=== PATIENT | male | born 1970 | race Two or more races ===

== ENCOUNTER 2018-04-02 09:31 | Emergency (ER) | payer SELFPAY ==
[2018-04-02] MEDS ORDERED: TETANUS & DIPHTHERIA TOX,ADULT 0.5 ML VIAL ONE (10:21)
[2018-04-02] MEDS ORDERED: LIDOCAINE 1% 20 ML MDV ONE (10:21)
--- NOTE | 2018-04-02 10:39 | EDPHYS ---
Physician Documentation [facility] Name: Mercedes Robertson Age: 47 yrs Sex: Male : 1970 Arrival Date: 04/02/2018 Time: 09:34 Bed 9 Private MD: None, None ED Physician Jeff iLno HPI: 04/02 10:18 This 47 yrs old Male presents to ER via Ambulatory with complaints of Laceration To Arm.kb 10:18 The patient has a laceration related to: doing carpentry, from a power saw, occurred at [employer] work, and there are no complicating factors. The injury was accidental. The laceration(s) is(are) located on the left wrist. Onset: The symptoms/episode began/occurred just prior to arrival. Associated signs and symptoms: The patient has no apparent associated signs or symptoms. The patient has not experienced similar symptoms in the past. The patient has not recently seen a physician. Pt states he was sawing wood and accidentally cut his left wrist. Historical: - Allergies: 10:06 NKA; iw - Home Meds: 10:06 None [Active]; iw - PMHx: 10:06 None; iw - PSHx: 10:06 None; iw - Immunization history:: Last tetanus immunization: unknown. - Social history:: Smoking status: Patient/guardian denies using tobacco. ROS: 10:16 Constitutional: Negative for fever, chills, and weight loss, Cardiovascular: Negative kb for chest pain, palpitations, and edema, Respiratory: Negative for shortness of breath, cough, wheezing, and pleuritic chest pain, Abdomen/GI: Negative for abdominal pain, nausea, vomiting, diarrhea, and constipation, Back: Negative for injury and pain, : Negative for injury, bleeding, discharge, and swelling, MS/Extremity: Negative for injury and deformity, Neuro: Negative for headache, weakness, numbness, tingling, and seizure. 10:16 Skin: Positive for laceration(s), of the left wrist. Exam: 10:16 Constitutional: This is a well developed, well nourished patient who is awake, alert, kb and in no acute distress. Head/Face: Normocephalic, atraumatic. Chest/axilla: Normal chest wall appearance and motion. Nontender with no deformity. No lesions are appreciated. Cardiovascular: Regular rate and rhythm with a normal S1 and S2. No gallops, murmurs, or rubs. Normal PMI, no JVD. No pulse deficits. Respiratory: Lungs have equal breath sounds bilaterally, clear to auscultation and percussion. No rales, rhonchi or wheezes noted. No increased work of breathing, no retractions or nasal flaring. Abdomen/GI: Soft, non-tender, with normal bowel sounds. No distension or tympany. No guarding or rebound. No evidence of tenderness throughout. MS/ Extremity: Pulses equal, no cyanosis. Neurovascular intact. Full, normal range of motion. Neuro: Awake and alert, GCS 15, oriented to person, place, time, and situation. Cranial nerves II-XII grossly intact. Motor strength 5/5 in all extremities. Sensory grossly intact. Cerebellar exam normal. Normal gait. 10:16 Skin: injury, laceration(s), the wound is approximately 5 cm(s), of the left wrist, that can be described as clean, no foreign body, jagged, without bleeding. Vital Signs: 10:06 BP 134 / 74; Pulse 84; Resp 16; Temp 98.2; Pulse Ox 100% on R/A; Weight 70.31 kg; iw Height 5 ft. 1 in. (154.94 cm); Pain 8/10; 10:06 Body Mass Index 29.29 (70.31 kg, 154.94 cm) iw Laceration: 10:39 Wound Repair of 5cm ( 2.0in ) subcutaneous laceration to left wrist. Irregularly kb shaped.. Skin/tissue flap noted.. wound jagged due to saw teeth. Distal neuro/vascular/tendon intact. Anesthesia: Wound infiltrated with 6 mls of 1% lidocaine. Wound prep: Extensive cleansing with betadine by me, Wound irrigation with saline by me. Skin closed with 7 4-0 Prolene using interrupted sutures and sterile technique. Dressed with Neosporin, 4x4's. Patient tolerated well. MDM: 09:59 Patient medically screened. kb 10:16 Data reviewed: vital signs, nurses notes. Data interpreted: Pulse oximetry: on room air kb is 100 %. Interpretation: normal. 10:19 Counseling: I had a detailed discussion with the patient and/or guardian regarding: the kb historical points, exam findings, and any diagnostic results supporting the discharge/admit diagnosis, the need for outpatient follow up, a family practitioner, to return to the emergency department if symptoms worsen or persist or if there are any questions or concerns that arise at home. 10:40 ED course: Wound approximated as much as possible due to jagged skin and flaps. . kb 04/02 10:09 Order name: Prolene, Sutures; Complete Time: 10:57 kb 04/02 10:09 Order name: Dressing - Wound; Complete Time: 10:57 kb 04/02 10:09 Order name: Gloves, Sterile; Complete Time: :57 kb 04/02 10:09 Order name: Setup Suture Tray; Complete Time: 10:57 kb Administered Medications: 10:30 Drug: Lidocaine (1 %) 1 vials Volume: 5 ml; Route: Infiltration; iw 10:45 Drug: Tetanus-Diphtheria Toxoid Adult 0.5 ml {[employer]er [employer]: [employer]. Exp: iw 03/21/2020. Lot #: [id number]. } Route: IM; Site: left deltoid; 11:00 Follow up: Response: No adverse reaction iw 10:57 Drug: KeFLEX 500 mg Route: PO; iw 11:00 Follow up: Response: No adverse reaction iw Disposition: 13:42 Co-signature as Attending Physician, Jeff Lino MD. rn Disposition: 04/02/18 10:38 Discharged to Home. Impression: Laceration without foreign body of left wrist. - Condition is Stable. - Discharge Instructions: Laceration Care, Adult, [id number]. - Prescriptions for Keflex 500 mg Oral Capsule - take 1 capsule by ORAL route every 8 hours for 7 days; 21 capsule. - Medication Reconciliation Form, Thank You Letter, Antibiotic Education, Prescription Opioid Use form. - Follow up: Emergency Department; When: As needed; Reason: Worsening of condition. Follow up: Private Physician; When: 2 - 3 days; Reason: Recheck today's complaints, Continuance of care, Re-evaluation by your physician. - Notes: Have sutures removed in 10-14 days Keep clean and dry Signatures: Vivian Spann, CYANIDE POT HARDENER-C CYANIDE POT HARDENER-Delanob Priscilla Bauer RN RN iw Jeff Lino MD MD interventional radiology rn: (The following items were deleted from the chart) 11:02 10:38 04/02/2018 10:38 Discharged to Home. Impression: Laceration without foreign body iw of left wrist. Condition is Stable. Discharge Instructions: Laceration Care, Adult, [id number]. Forms are Medication Reconciliation Form, Thank You Letter, Antibiotic Education, Prescription Opioid Use. Follow up: Emergency Department; When: As needed; Reason: Worsening of condition. Follow up: Private Physician; When: 2 - 3 days; Reason: Recheck today's complaints, Continuance of care, Re-evaluation by your physician. kb
--- NOTE | 2018-04-02 10:39 | ER ---
Nurse's Notes 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 Transition of care: patient was not received from another setting of care. Complicating Factors: There are no complicating factors for this patient. Onset of symptoms was April 02, 2018. Risk Assessment: Do you want to hurt yourself or someone else? Patient reports no desire to harm self or others. Initial Sepsis Screen: Does the patient meet any 2 criteria? No. Patient's initial sepsis screen is negative. Does the patient have a suspected source of infection? No. Patient's initial sepsis screen is negative. Care prior to arrival: Bleeding of injury controlled. 10:04 Method Of Arrival: Ambulatory iw 10:04 Acuity: NESTOR 4 iw Historical: - Allergies: 10:06 NKA; iw - Home Meds: 10:06 None [Active]; iw - PMHx: 10:06 None; iw - PSHx: 10:06 None; iw - Immunization history:: Last tetanus immunization: unknown. - Social history:: Smoking status: Patient/guardian denies using tobacco. Screenin:01 Abuse screen: Denies threats or abuse. Denies injuries from another. Nutritional iw screening: No deficits noted. Tuberculosis screening: No symptoms or risk factors identified. Fall Risk None identified. Assessment: 10:10 General: Appears in no apparent distress. Behavior is calm, cooperative. Pain: iw Complains of pain in left wrist. Neuro: Level of Consciousness is awake, alert, obeys commands, Oriented to person, place, time. Cardiovascular: Patient's skin is warm and dry. Respiratory: Respiratory effort is even, unlabored, Respiratory pattern is regular, symmetrical. Derm: Skin is pink, warm \T\ dry. normal. Musculoskeletal: Range of motion: intact in all extremities. Injury Description: Laceration sustained to left wrist is jagged, 2.6 to 7.5 cm long. Vital Signs: 10:06 BP 134 / 74; Pulse 84; Resp 16; Temp 98.2; Pulse Ox 100% on R/A; Weight 70.31 kg; iw Height 5 ft. 1 in. (154.94 cm); Pain 8/10; 10:06 Body Mass Index 29.29 (70.31 kg, 154.94 cm) iw ED Course: 09:34 Patient arrived in ED. mr 09:35 None, None is Private Physician. mr 09:59 [facility]C [facility] kb 09:59 Jeff Lino MD is Attending Physician. kb 10:04 Priscilla Bauer, RN is Primary Nurse. iw 10:06 Triage completed. iw 10:06 Arm band placed on. iw 10:35 Assist provider with laceration repair on left wrist that was between 2.6 to 7.5 cm iw using sutures. Set up tray. Performed by Vivian GARCIA Dressed with 4X4s, Kerlix, Neosporin, Patient tolerated well. 11:02 Patient has correct armband on for positive identification. iw 11:02 Patient did not have IV access during this emergency room visit. iw Administered Medications: 10:30 Drug: Lidocaine (1 %) 1 vials Volume: 5 ml; Route: Infiltration; iw 10:45 Drug: Tetanus-Diphtheria Toxoid Adult 0.5 ml {Home Mortgage Disclosure Act Specialist: [employer]. Exp: iw 03/21/2020. Lot #: [id number]. } Route: IM; Site: left deltoid; 11:00 Follow up: Response: No adverse reaction iw 10:57 Drug: KeFLEX 500 mg Route: PO; iw 11:00 Follow up: Response: No adverse reaction iw Outcome: 10:38 Discharge ordered by . kb 11:00 Discharged to home ambulatory, with friend. iw 11:00 Condition: good 11:00 Discharge instructions given to patient, friend, Instructed on discharge instructions, follow up and referral plans. medication usage, wound care, Demonstrated understanding of instructions, follow-up care, medications, wound care, Prescriptions given X 1. 11:02 Patient left the ED. iw Signatures: Vivian Spann FNP-C FNP-Chary Obrien mr Priscilla Bauer, RN RN iw
[2018-04-02] MEDS ORDERED: CEPHALEXIN 250 MG CAP ONE (10:51)
== END 2018-04-02 11:02 | disposition home or self-care (01) ==
LOC: ER 09:31
PROC: 0JQH0ZZ Repair Left Lower Arm Subcutaneous Tissue and Fascia, Open Approach (ICD-10-PCS; principal; 2018-04-02)
DX: S61.512A Laceration without foreign body of left wrist, initial encounter (principal); W29.8XXA Contact with other powered hand tools and household machinery, initial encounter; Y93.89 Activity, other specified; Y92.89 Other specified places as the place of occurrence of the external cause; Y99.8 Other external cause status; Z23 Encounter for immunization
CPT/HCPCS: 90714; 99283